=== PATIENT | male | born 1975 | race African-American/Black ===

== ENCOUNTER 2018-12-22 23:08 | Inpatient (IN) | payer OTHER ==
[~2018-12-22] VITALS: Ht 190.5 cm; Wt 93.0 kg
[~2018-12-22 23:08] MED LIST: ASPIR 8181 MG PO; AUGMENTIN 875875 MG PO; FISH OIL 1,0001 EAC5 PO; FLAGYL500 MG PO; GLUCOPHAGE500 MG PO; HUMALOG100 UNIT/1 SUBQ; HUMALOG100 UNIT/2 SQ; HYDROCODON-ACE1 EAC7 PO; KEFLEX500 MG PO; LANTUS SUBQ; LANTUSSOLASTAR SUBQ; METFORMIN HCL500 MG PO; METFORMIN PO; NORCO 5-325 TA1 EACH PO; NORCO 7.5-3251 EACH PO; PERCOCET 5-3251 EACH PO; VITAMIN B-12500 MCG PO
[2018-12-22 23:14] VITALS: BP 129/75
[2018-12-22] MEDS ORDERED: NEURONTIN 300300 M1 PO (23:19)
[2018-12-23 01:27] LABS: ABSOLUTE NEUTROPHILS 3.2 thou/uL (1.4-8.2); BASOPHILS 0.7 % (0.0-2.0); EOSINOPHILS 3.6 % (0.0-3.0); HEMATOCRIT 36.4 % (42.0-52.0); HEMOGLOBIN 12.5 gm/dL (14.0-18.0); LYMPHOCYTES 21.9 % (24.0-44.0); MCH 27.6 pg (26.0-34.0); MCHC 34.4 g/dL (28.0-37.0); MCV 80.1 fL (80.0-100.0); MONOCYTES 6.8 % (1.0-8.0); PLATELET COUNT 246 thou/uL (150-400); RBC 4.55 mil/uL (4.50-6.00); RDW 12.9 % (10.5-14.5); WBC 4.7 thou/uL (4.0-11.0)
[2018-12-23 01:28] LABS: URINE BILIRUBIN NEGATIVE (Negative); URINE BLOOD TRACE (Negative); URINE CLARITY CLEAR; URINE COLOR YELLOW; URINE GLUCOSE-RANDOM* 3+ (Negative); URINE KETONES NEGATIVE (Negative); URINE LEUKOCYTES-REFLEX NEGATIVE (Negative); URINE NITRITE-REFLEX NEGATIVE (Negative); URINE PROTEIN (DIPSTICK) NEGATIVE (Negative); URINE SPECIFIC GRAVITY <= 1.005 (1.005-1.035); URINE UROBILINOGEN 0.2 E.U./dl (0.2-1.0)
[2018-12-23 01:41] LABS: ALBUMIN 3.5 g/dL (3.4-5.0); ANION GAP 6 mmol/L (7-16); BUN 25 mg/dL (7-18); CALCIUM 9.3 mg/dL (8.5-10.1); CHLORIDE 91 mmol/L (98-107); CO2 30 mmol/L (21-32); DIRECT BILIRUBIN 0.1 mg/dL (<0.1-0.3); LIPASE 182 U/L (73-393); SGOT 17 U/L (15-37); SGPT 29 U/L (30-65); SODIUM 127 mmol/L (136-145); TOTAL BILIRUBIN 0.4 mg/dL (<0.1-1.0); TOTAL PROTEIN 7.4 g/dL (6.4-8.2); TROPONIN-I <0.06 ng/mL (<0.06)
[2018-12-23 01:48] LABS: GLUCOSE 753 mg/dL (74-106)
[2018-12-23 02:43] VITALS: BP 154/83
[2018-12-23] MEDS ORDERED: LISINOPRIL10 MG PO (03:14)
[2018-12-23] MEDS ORDERED: LIPITOR 20 MG T20 M1 PO (03:15)
[2018-12-23 03:39] VITALS: BP 134/71
[2018-12-23 04:11] VITALS: BP 143/81
--- NOTE | 2018-12-23 05:16 | NUR ---
PT ARRIVED UNIT FROM ER AT ABOUT 0400. PT A/OX4, VITAL SIGNS STABLE, ASSESSMENT CHARTED. BS WAS 479 UPON ARRIVAL. INSULIN REGULAR DRIP STARTED PER PROTOCOL. PAIN MANAGED WITH PAIN MEDICATION. CONSENTS SIGNED, ADMISSION COMPLETED. PT RESTING IN COMFORTABLE IN BED. WILL CONTINUE TO MONITOR. DROPTLET PRECAUTIONS MAINTAINED.
[2018-12-23 05:55] LABS: CALCIUM 9.5 mg/dL (8.5-10.1); CREATININE 0.9 mg/dL (0.7-1.3); POTASSIUM 4.3 mmol/L (3.5-5.1)
[2018-12-23 06:00] LABS: CHOLESTEROL 156 mg/dL (<200); HDL CHOLESTEROL 75 mg/dL (>40); LDL CHOLESTEROL 72 mg/dL (<100); TC:HDL 2.1 Ratio (Not establshd); TRIGLYCERIDE 48 mg/dL (<150); VLDL 10 mg/dL (<40)
[2018-12-23 06:01] LABS: SERUM ASSESSMENT Clear
[2018-12-23 07:38] VITALS: BP 113/71
--- NOTE | 2018-12-23 08:21 | EKG ---
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 : 1975 Requested By: Denisa Brumfield Order Number: [id number] MD: Hong Anne Measurements Intervals [place] Rate: 96 P: 57 MN: 159 QRS: 67 QRSD: 82 T: 52 QT: 347 QTc: 439 Interpretive Statements Sinus rhythm Compared to ECG 09/04/2015 11:06:04 Electronically Signed On 12-23-2018 8:21:27 CDT by Hong Anne [email or web address] ��������������������������������������������� <ELECTRONICALLY SIGNED> ���������������������������������������� By: Hong Anne MD ��������������������������������������������� 12/23/18 0821 [id number] 33 Hong Anne MD /YEFRI
--- NOTE | 2018-12-23 17:08 | NUR ---
ASSUMED CARE OF PT AT SHIFT CHANGE. ASSESSMENTS CHARTED. MEDS GIVEN PER OCT. PT ALERT AND ORIENTED, VSS, C/O PAIN, MANAGED WITH PO PAIN MEDS AND TOPICAL MED. PT UP SBA, URINE OUTPUT ADEQUATE. INSULIN GTT DC'D PER PROVIDER ORDERS. ORDERS RECEIVED FOR SQ INSULIN. BLOOD SUGAR AT 446 AROUND 1700. PROVIDER NOTIFIED, ORDERS RECEIVED TO CONTINUE CURRENT INSULIN ORDERS, AND CHECK BLOOD SUGAR IN 1-2 HOURS. APPETITE GOOD, PT IS CURRENTLY RESTING IN BED WITH FAMILY AT BEDSIDE. CALLS APPROPRIATELY. DENIES CONCERNS. CONTINUING TO MONITOR.
[2018-12-23 20:15] VITALS: BP 110/71
[2018-12-23 22:11] LABS: GLYCOHEMOGLOBIN (HGB A1C) 15.1 % (4.8-5.6)
[2018-12-24 04:00] VITALS: BP 119/73
--- NOTE | 2018-12-24 05:00 | NUR ---
ASSESSMENT DOCUMENTED.PT RESTING IN NO ACUTE DISTRESS.A/OX4.LEGALLY BLIND.DENIES PAIN OR LUBNA DISTRESS.ASSISTED WITH SHOWER WITH SET UP.INSULIN AND ACCU CHECKS PER DR'S ORDERS.UP WITH SBA TO BR.NO CONCERNS VOICED AT THIS TIME.WILL CONT TO MONITOR PER POC.
[2018-12-24 08:10] VITALS: BP 127/80
[2018-12-24 16:06] VITALS: BP 138/82
--- NOTE | 2018-12-24 17:23 | NUR ---
PT STRUGGLED TO REMAIN COMPLIANT TO DIABETIC DIET ALTHOUGH AWARE BLOOD SUGARS RUNNING VERY HIGH - LETHARGIC UP UNTIL ABOUT 1600 - 1700 BLOOD SUGAR 76 AND PT SITTING UP AND MOR ALERT AND COOPERATIVE
[2018-12-24 20:37] VITALS: BP 117/74
[2018-12-25 04:09] VITALS: BP 146/84
--- NOTE | 2018-12-25 05:17 | NUR ---
ASSUMED CARE AT 1900. PT AO X4. REPORTS BACK PAIN. REFUSES DICLOFENAC AND TYLENOL BUT WANTED NORCO. PT BG 264. 35 UNITS OF LANTUS AND 4 UNITS HUMALOG. PT REQUESTED FOOD BECAUSE HE HAD NOT EATEN DINNER. RECHECKED BG AT 0400 WAS 362. DIRECTOR OF PLANT OPERATIONS NOTIFIED. ONE TIME ORDER FOR HUMALOG 10 UNITS ORDERED. C/O NAUSEA, AND COUGH. COUGH SYRUP AND ZOFRAN PRN GIVEN. NO FURTHER C/O REPORTED. WILL CONTINUE TO FOLLOW PLAN OF CARE.
[2018-12-25 09:00] VITALS: BP 92/70
[2018-12-25 17:24] VITALS: BP 106/68
--- NOTE | 2018-12-25 17:57 | NUR ---
ASSUMED CARE AT SHIFT CHANGE, ALERT AND ORIENTED X4. BLD GLUCOSE MAITAINED PER ORDERS. VSS AND AFEBRILE. C/O BACK PAIN AND MEDICATED SCHEDULED. ASKING FOR MORE FOOD AND CALLED FOOD SERVICES AND PATIENT WAS EDUCATED AND ADVICED TO ADHERE TO THE DIET. AND WILL CONTINUE WITH POC.
[2018-12-25 19:49] VITALS: BP 96/61
--- NOTE | 2018-12-26 03:21 | NUR ---
ASSUMED PT CARE AT 1900. PT A/OX4, VITAL SIGNS STABLE, ASSESSMENT CHARTED. NO COMPLAINTS OF PAIN/CHEST PAIN. BLOOD SUGAR WAS 221, PT EDUCATED ON KEEPING BLOOD SUGAR WITHIN NORMAL LIMITS PT KEPT REQUESTING FOR SOMETHING TO EAT. OTHERWISE PT RESTED WELL THROUGH THE NIGHT. PROGRESSING TOWARD PLAN OF CARE. WILL CONTINUE TO MONITOR.
[2018-12-26 04:17] VITALS: BP 611/77
[2018-12-26 07:55] VITALS: BP 113/63
[2018-12-26] MEDS ORDERED: CELEBREX 200 M200 M1 PO (10:20)
[2018-12-26] MEDS ORDERED: OSELB75 PO (10:20)
[2018-12-26 10:43] VITALS: BP 113/63
--- NOTE | 2018-12-26 11:39 | NUR ---
DISCHARGE ASSUMED CARE AT SHIFT CHANGE ALERT AND ORIENTED X4. DENEIS ANY DISCOMFORT. BG LEVEL GETTING BETTER. VSS AMD S/B DR VINCENT AND STEVEN INSTRUCTION AND MEDICATION INFORMATION GIVEN TO PATIENT. PATIENT VERBALIZED UNDERSTANDING INSTRUCTION AND WAITING FOR A FRIEND TO PICK HIM UP.
== END 2018-12-26 13:16 | disposition home or self-care (01) | DRG 153 ==
LOC: ER 23:08 → EROBS 12-23 02:45 → 2N 12-23 03:39 → ENTRNSPT 12-26 12:58 → EDTRNSPTSTS 12-26 13:11 → 2N 12-26 13:16
PROVIDERS: Emergency Medicine; Nurse Practitioner Family; ADMIT Hospitalist
DX: J11.1 Influenza due to unidentified influenza virus with other respiratory manifestations (principal); E11.65 Type 2 diabetes mellitus with hyperglycemia; H54.8 Legal blindness, as defined in USA; I10 Essential (primary) hypertension; E78.5 Hyperlipidemia, unspecified; Z90.49 Acquired absence of other specified parts of digestive tract; Z79.84 Long term (current) use of oral hypoglycemic drugs; Z79.82 Long term (current) use of aspirin; Z91.14 Patient's other noncompliance with medication regimen
CPT/HCPCS: 10194

== ENCOUNTER → 2019-05-09 | Emergency (ER) | payer OTHER ==
[~2019-05-09] VITALS: Ht 190.5 cm; Wt 102.5 kg
[~2019-05-09] MED LIST changes: +CELEBREX 200 M200 M1 PO; +LIPITOR 20 MG T20 M1 PO; +LISINOPRIL10 MG PO; +NEURONTIN 300300 M1 PO; +OSELB75 PO
[2019-05-09 19:16] VITALS: BP 150/82
== END ==
LOC: ER 18:40
DX: M79.604 Pain in right leg (principal); M79.89 Other specified soft tissue disorders; E11.9 Type 2 diabetes mellitus without complications; I10 Essential (primary) hypertension; E78.5 Hyperlipidemia, unspecified; Z90.49 Acquired absence of other specified parts of digestive tract

== ENCOUNTER 2019-09-04 13:13 | Inpatient (IN) | payer OTHER ==
[~2019-09-04] VITALS: Ht 188 cm; Wt 99.8 kg
[2019-09-04 14:13] LABS: ABSOLUTE NEUTROPHILS 2.6 thou/uL (1.4-8.2); BASOPHILS 0.4 % (0.0-2.0); EOSINOPHILS 1.9 % (0.0-3.0); HEMATOCRIT 29.8 % (42.0-52.0); HEMOGLOBIN 10.2 gm/dL (14.0-18.0); LYMPHOCYTES 19.1 % (24.0-44.0); MCH 26.9 pg (26.0-34.0); MCHC 34.2 g/dL (28.0-37.0); MCV 78.7 fL (80.0-100.0); MONOCYTES 8.3 % (1.0-8.0); PLATELET COUNT 191 thou/uL (150-400); POLYS 70.3 % (36.0-66.0); RBC 3.79 mil/uL (4.50-6.00); RDW 13.8 % (10.5-14.5); WBC 3.8 thou/uL (4.0-11.0)
[2019-09-04 14:16] LABS: CALCIUM 8.8 mg/dL (8.5-10.1); CREATININE 1.2 mg/dL (0.7-1.3); POTASSIUM 3.6 mmol/L (3.5-5.1)
[2019-09-04 14:25] LABS: ALBUMIN 2.6 g/dL (3.4-5.0); TOTAL BILIRUBIN 0.5 mg/dL (<0.1-1.0); TOTAL PROTEIN 6.9 g/dL (6.4-8.2); TROPONIN-I 0.06 ng/mL (<0.06)
--- NOTE | 2019-09-04 15:07 | EKG ---
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 RAMON : 1975 Requested By: Julien Velez Order Number: [id number] MD: Hong Anne Measurements Intervals [place] Rate: 101 P: 44 TN: 154 QRS: 45 QRSD: 82 T: 68 QT: 353 QTc: 458 Interpretive Statements Sinus tachycardia Baseline wander in lead(s) I,II,III,aVR,aVF,V2,V3,V5,V6 Compared to ECG 12/22/2018 23:34:46 Sinus rhythm no longer present Electronically Signed On 09-04-2019 15:07:10 REFINERY 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
[2019-09-04 16:46] VITALS: BP 151/78
[2019-09-04 20:00] VITALS: BP 133/73
[2019-09-05 04:52] VITALS: BP 148/80
--- NOTE | 2019-09-05 05:08 | NUR ---
PT WAS AN ER ADMIT. PT IS ADMITTED WITH CHF AND CHEST PAIN. NO SIGN OF DISTRESS NOTED. UPON ARRIVAL TO THE FLOOR, NO SIGN OF DISTRESS NOTED IN PT. FALL PRECAUTION IN PLACE, CALL LIGHT WITHIN REACH. ADMISSION ASSESSMENT AND EDUCATION COMPLETED. VITAL SIGNS STABLE. SCHEDULED MEDS ADMINISTERED TO PT. PT VERBALIZES CHEST PAIN, PAIN MED ADMINISTERED TO PT. CONTINUE TO MONITOR PATIENT, DENIES ANY FURTHER NEEDS AT THIS TIME.
[2019-09-05 05:18] LABS: CALCIUM 8.5 mg/dL (8.5-10.1); CREATININE 1.5 mg/dL (0.7-1.3); POTASSIUM 3.7 mmol/L (3.5-5.1)
[2019-09-05 05:27] LABS: HEMATOCRIT 25.9 % (42.0-52.0); HEMOGLOBIN 8.8 gm/dL (14.0-18.0); MCHC 33.9 g/dL (28.0-37.0); MCV 79.7 fL (80.0-100.0); RBC 3.25 mil/uL (4.50-6.00); RDW 13.5 % (10.5-14.5); WBC 3.5 thou/uL (4.0-11.0)
[2019-09-05 07:42] VITALS: BP 155/86
--- NOTE | 2019-09-05 09:46 | 2DMMODE ---
[facility] [place] [address] 2 D/M-MODE ECHOCARDIOGRAM Name: CHAPIN ECHOLS Room #: 203-P [facility] IN .R.#: [id number] Admission: 09/04/19 Attend Phys: Ignacio Bustos MD Discharge: Date of : 73 Report #: [id number] THIS REPORT FOR: //name// APPROVED REPORT Study performed: 09/05/2019 08:46:56 EXAM: Comprehensive 2D, Doppler, and color-flow Echocardiogram Patient Location: Bedside Room #: 203 Status: routine BSA: 2.26 HR: 90 bpm BP: 155/86 mmHg Other Information Study Quality: Adequate Indications Congestive Heart Failure Diabetes Dyspnea Hypertension/HDD 2D Dimensions RVDd: 32.87 mm IVSd: 14.89 (7-11mm) LVOT Diam: 24.95 (18-24mm) LVDd: 45.96 mm PWd: 17.05 (7-11mm) Ascending Ao: 37.21 (22-36mm) LVDs: 35.77 (25-40mm) Aortic Root: 38.33 mm IVC: 19.00 mm Volumes Left Atrial Volume (Systole) Single Plane 4CH: 82.71 mL Single Plane 2CH: 63.96 mL LA ESV Index: 35.00 mL/m2 Aortic Valve AoV Peak Ruy.: 1.08 m/s AO Peak Gr.: 4.65 mmHg LVOT Max P.84 mmHg LVOT Max V: 0.84 m/s VICKI Vmax: 3.82 cm2 Pulmonary Valve PV Peak Ruy.: 0.88 m/s PV Peak Gr.: 3.07 mmHg [facility] [address] [place] [address] 2 D/M-MODE ECHOCARDIOGRAM Name: CHAPIN ECHOLS Room #: 203-[facility].#: [id number] Admission: 09/04/19 Attend Phys: Ignacio Bustos MD Discharge: Date of : 73 Report #: [id number] Tricuspid Valve TR Peak Ruy.: 2.01 m/s TR Peak Gr.: 16.15 mmHg PA Pressure: 21.00 mmHg Left Ventricle The left ventricle is normal size. There is normal LV segmental wall motion. Moderate concentric left ventricular hypertrophy. Left ventricular systolic function is at the lower limits of normal LVEF 50%. Mild diastolic dysfunction is present (impaired relaxation pattern). Right Ventricle The right ventricle is normal size. The right ventricular systolic function is normal. Atria Left atrium is dilated. The right atrium size is normal. Aortic Valve The aortic valve is normal in structure. No aortic regurgitation is present. There is no aortic valvular stenosis. Mitral Valve The mitral valve is normal in structure. Trace mitral regurgitation. No evidence of mitral valve stenosis. Tricuspid Valve The tricuspid valve is normal in structure. There is trace tricuspid regurgitation. Estimated PAP 21 mmHg. There is no pulmonary hypertension. Pulmonic Valve The pulmonary valve is normal in structure. Trace pulmonic regurgitation. Great Vessels The aortic root is normal in size. IVC is normal in size and collapses >50% with inspiration. Pericardium Small pericardial effusion. <Conclusion> Left ventricular systolic function is at the lower limits of [facility] [address] [place] [address] 2 D/M-MODE ECHOCARDIOGRAM Name: CHAPIN ECHOLS IYER Room #: 203-P [facility] IN M.R.#: [id number] Admission: 09/04/19 Attend Phys: Ignacio Bustos MD Discharge: Date of : 73 Report #: [id number] normal There is normal LV segmental wall motion. LVEF 50%. Moderate LVH Mild diastolic dysfunction The aortic valve is normal in structure. No aortic regurgitation or stenosis. The mitral valve is normal in structure. Trace mitral regurgitation. There is trace tricuspid regurgitation. Estimated pulmonary artey pressure of 21 mmHg. Small pericardial effusion. <ELECTRONICALLY SIGNED> By: Daniel Hall MD, [facility] 09/05/1946 Daniel Hall MD, FACC /INF
[2019-09-05 11:11] VITALS: BP 150/78
--- NOTE | 2019-09-05 11:46 | NUR ---
Nutrition screening risk was identified at admit with 2 point risk poor appetite and unintentional wt loss. Chart reviewed, pt has had about 10-15 lb gain, admitted with CHF. Appetite is good. Reviewed and answered questions pt had regarding limiting Na. Pt legally blind, family member assists with meals. Pt has been trying to reduce sodium intake but still unaware of some hidden sources of sodium, example eating south korean food frequently. Also hx of diabetes. Admit in November, A1C was 15. States he can draw up on insulin based on "clicks" but does not monitor his BG levels at home. Hospital BG in good control at this time. Added carb controll diet to diet order. Low nutrition risk
[2019-09-05] MEDS ORDERED: FUROSEMIDE 20 M20 MG PO (12:04)
[2019-09-05 14:31] VITALS: BP 150/78
--- NOTE | 2019-09-05 17:52 | NUR ---
ASSUMED CARE OF PT AT SHIFT CHANGE. ASSESSMENTS CHARTED. MEDS GIVEN PER MAR. VSS. NO C/O PAIN. PT AOX4. DISCHARGE ORDERS AND INSTRUCTIONS COMLETE. TELE AND IV DC'D. PT WAITING FOR GIRLFRIEND TO TAKE HIM HOME. WILL CONTINUE TO MONITOR UNTIL PT IS OFF UNIT.
== END 2019-09-05 18:53 | disposition home or self-care (01) | DRG 293 ==
LOC: ER 13:13 → EROBS 16:54 → 2N 20:15
PROVIDERS: Physician Assistant; ADMIT Hospitalist
DX: I11.0 Hypertensive heart disease with heart failure (principal); E11.9 Type 2 diabetes mellitus without complications; H54.8 Legal blindness, as defined in USA; I50.30 Unspecified diastolic (congestive) heart failure; E78.5 Hyperlipidemia, unspecified; Z90.49 Acquired absence of other specified parts of digestive tract; Z79.899 Other long term (current) drug therapy; Z79.4 Long term (current) use of insulin; Z79.82 Long term (current) use of aspirin; Z79.84 Long term (current) use of oral hypoglycemic drugs
CPT/HCPCS: 10081

== ENCOUNTER 2019-10-03 16:42 | Emergency (ER) | payer OTHER ==
[~2019-10-03] VITALS: Ht 190.5 cm; Wt 98.9 kg
[2019-10-03 16:42] VITALS: BP 146/90
[~2019-10-03 16:42] MED LIST changes: +FUROSEMIDE 20 M20 MG PO
== END 2019-10-03 17:43 | disposition home or self-care (01) ==
LOC: ER 16:42
DX: J06.9 Acute upper respiratory infection, unspecified (principal); E11.9 Type 2 diabetes mellitus without complications; I10 Essential (primary) hypertension; E78.5 Hyperlipidemia, unspecified; Z90.49 Acquired absence of other specified parts of digestive tract

== ENCOUNTER 2020-01-22 21:33 | Emergency (ER) | payer OTHER ==
[~2020-01-22] VITALS: Ht 190.5 cm; Wt 99.3 kg
[2020-01-23 00:01] LABS: ABSOLUTE NEUTROPHILS 3.8 thou/uL (1.4-8.2); BASOPHILS 1.1 % (0.0-2.0); EOSINOPHILS 5.6 % (0.0-3.0); HEMATOCRIT 27.4 % (42.0-52.0); HEMOGLOBIN 9.5 gm/dL (14.0-18.0); LYMPHOCYTES 19.4 % (24.0-44.0); MCHC 34.6 g/dL (28.0-37.0); MCV 80.9 fL (80.0-100.0); MONOCYTES 7.7 % (1.0-8.0); PLATELET COUNT 235 thou/uL (150-400); POLYS 66.2 % (36.0-66.0); RBC 3.39 mil/uL (4.50-6.00); RDW 14.5 % (10.5-14.5); WBC 5.7 thou/uL (4.0-11.0)
[2020-01-23 00:02] LABS: CALCIUM 8.2 mg/dL (8.5-10.1); CREATININE 1.2 mg/dL (0.7-1.3)
[2020-01-23 02:31] VITALS: BP 151/76
== END 2020-01-23 02:56 | disposition home or self-care (01) ==
LOC: ER 21:33
PROVIDERS: Emergency Medicine
DX: T25.231A Burn of second degree of right toe(s) (nail), initial encounter (principal); T25.232A Burn of second degree of left toe(s) (nail), initial encounter; T25.221A Burn of second degree of right foot, initial encounter; T25.222A Burn of second degree of left foot, initial encounter; T31.0 Burns involving less than 10% of body surface; E11.40 Type 2 diabetes mellitus with diabetic neuropathy, unspecified; I10 Essential (primary) hypertension; E78.5 Hyperlipidemia, unspecified; Z90.49 Acquired absence of other specified parts of digestive tract; Z79.899 Other long term (current) drug therapy; Z79.82 Long term (current) use of aspirin; Z79.4 Long term (current) use of insulin; X12.XXXA Contact with other hot fluids, initial encounter; Y93.89 Activity, other specified; Y92.89 Other specified places as the place of occurrence of the external cause; Y99.8 Other external cause status

== ENCOUNTER → 2020-09-04 | Outpatient (CLI) | payer OTHER | LOC: SJCVCIMAG 15:16 | PROVIDERS: ATTEND Internal Medicine | DX: I10 Essential (primary) hypertension (principal); Z13.220 Encounter for screening for lipoid disorders; R60.0 Localized edema; M79.604 Pain in right leg; M79.605 Pain in left leg; M79.89 Other specified soft tissue disorders; E66.9 Obesity, unspecified; E10.40 Type 1 diabetes mellitus with diabetic neuropathy, unspecified; Z79.899 Other long term (current) drug therapy; Z87.891 Personal history of nicotine dependence ==

== ENCOUNTER 2020-10-22 14:16 | Inpatient (IN) | payer OTHER ==
[~2020-10-22] VITALS: Ht 190.5 cm; Wt 147.9 kg
[2020-10-22] VITALS (7 sets, daily range): BP systolic 147–210; BP diastolic 83–112
[2020-10-22] MEDS ORDERED: TOPROL XL50 MG PO (15:10)
[2020-10-22] MEDS ORDERED: LASIX 40 MG TAB40 MG PO (15:10)
[2020-10-22 15:45] LABS: ABSOLUTE NEUTROPHILS 3.8 thou/uL (1.4-8.2); BASOPHILS 1.1 % (0.0-2.0); EOSINOPHILS 8.9 % (0.0-3.0); HEMATOCRIT 22.9 % (42.0-52.0); HEMOGLOBIN 7.3 gm/dL (14.0-18.0); LYMPHOCYTES 14.7 % (24.0-44.0); MCH 23.6 pg (26.0-34.0); MCHC 31.7 g/dL (28.0-37.0); MCV 74.7 fL (80.0-100.0); MONOCYTES 8.1 % (1.0-8.0); PLATELET COUNT 272 thou/uL (150-400); POLYS 67.2 % (36.0-66.0); RBC 3.07 mil/uL (4.50-6.00); RDW 16.3 % (10.5-14.5); WBC 5.7 thou/uL (4.0-11.0)
[2020-10-22 16:01] LABS: APTT 24.4 Seconds (24.5-32.8); PROTIME 11.3 Seconds (9.3-11.4)
[2020-10-22 16:38] LABS: ANION GAP 8 mmol/L (7-16); BUN 30 mg/dL (7-18); CALCIUM 8.3 mg/dL (8.5-10.1); CHLORIDE 107 mmol/L (98-107); CO2 26 mmol/L (21-32); GLUCOSE 118 mg/dL (74-106); POTASSIUM 4.4 mmol/L (3.5-5.1); SODIUM 141 mmol/L (136-145)
[2020-10-22 16:47] LABS: ALBUMIN 2.6 g/dL (3.4-5.0); SGOT 50 U/L (15-37); SGPT 37 U/L (30-65); TOTAL BILIRUBIN 0.4 mg/dL (0.2-1.0); TROPONIN-I <0.06 ng/mL (<0.06)
[2020-10-22 18:27] LABS: FOLIC ACID 10.5 ng/mL (8.6-58.9)
--- NOTE | 2020-10-22 19:23 | NUR ---
patient arrives to ccu at 1825.
[2020-10-22 19:42] LABS: % SATURATION 14 % (20-39); IRON 42 ug/dL (65-175); TIBC 292 ug/dL (250-450)
[2020-10-22] MEDS ORDERED: MELATONIN3 M1 PO (21:51)
[2020-10-23 03:43] VITALS: BP 147/94
--- NOTE | 2020-10-23 05:02 | NUR ---
ARRIVED TO FLOOR AROUND CHANGE OF SHIFT/RECEIVED REPORT FROM DAY RN; PATIENT ALERT & ORIENTED/VISUALLY IMPAIRED; ORIENTED TO ROOM; PT ABLE TO TRANSFER TO BED WITHOUT INCIDENT; VSS; WILL CONTINUE TO ASSESS AND MONITOR ACCORDING TO POC.
[2020-10-23 05:50] LABS: EOSINOPHILS 8.6 % (0.0-3.0); HEMOGLOBIN 6.9 gm/dL (14.0-18.0); WBC 5.3 thou/uL (4.0-11.0)
[2020-10-23 05:55] LABS: ABSOLUTE NEUTROPHILS 3.8 thou/uL (1.4-8.2); HEMATOCRIT 21.2 % (42.0-52.0); LYMPHOCYTES 11.5 % (24.0-44.0); MCH 24.3 pg (26.0-34.0); MCHC 32.6 g/dL (28.0-37.0); MCV 74.4 fL (80.0-100.0); MONOCYTES 7.7 % (1.0-8.0); PLATELET COUNT 241 thou/uL (150-400); POLYS 71.2 % (36.0-66.0); RBC 2.85 mil/uL (4.50-6.00); RDW 16.2 % (10.5-14.5)
[2020-10-23 06:26] LABS: CALCIUM 8.1 mg/dL (8.5-10.1); CREATININE 2.1 mg/dL (0.7-1.3); MAGNESIUM 1.8 mg/dL (1.8-2.4); POTASSIUM 3.5 mmol/L (3.5-5.1)
--- NOTE | 2020-10-23 07:00 | EKG ---
[address] [place] [address] ELECTROCARDIOGRAM REPORT Name: CHAPIN ECHOLS Room #: 210- ADM IN M.R.#: [id number] Admission: 10/22/20 Attend Phys: Ignacio Bustos MD Discharge: Date of : 73 Report #: [id number] [facility] ED Test Date: 2020-10-22 Test Time: 14:54:39 Pat Name: CHAPIN ECHOLS Department: Room: 210 Gender: M Chief Of Vital Statistics: YUMIKO : 1975 Requested By: Pawel Evans Order Number: [id number] : Desmond Liu Measurements Intervals [place] Rate: 95 P: 46 FL: 182 QRS: 25 QRSD: 88 T: 59 QT: 358 QTc: 450 Interpretive Statements Sinus rhythm Compared to ECG 09/04/2019 13:24:33 Sinus tachycardia no longer present Electronically Signed On 10-23-2020 7:00:36 MOLASSES PREPARER by Desmond Liu [email or web address] <ELECTRONICALLY SIGNED> By: Desmond Liu MD, [facility] 10/23/20 0700 1454 1454 Desmond Liu MD, FACC /EPI
[2020-10-23 07:24] VITALS: BP 182/104
[2020-10-23 08:41] LABS: CHOLESTEROL 140 mg/dL (<200); HDL CHOLESTEROL 66 mg/dL (>40); LDL CHOLESTEROL 60 mg/dL (<100); TC:HDL 2.1 Ratio (Not establshd); TRIGLYCERIDE 71 mg/dL (<150); VLDL 14 mg/dL (<40)
--- NOTE | 2020-10-23 09:30 | 2DMMODE ---
[facility] [place] [address] 2 D/M-MODE ECHOCARDIOGRAM Name: CHAPIN ECHOLS Room #: 210-P ADM IN ..#: [id number] Admission: 10/22/20 Attend Phys: Ignacio Bustos MD Discharge: Date of : 73 Report #: [id number] THIS REPORT FOR: cc: TOBI Suarez family physician/PCP TOBI - Daniela family physician/PCP Desmond Liu MD [facility] ~ APPROVED REPORT Study performed: 10/23/2020 07:52:58 EXAM: Comprehensive 2D, Doppler, and color-flow Echocardiogram Patient Location: In-Patient Room #: 210 Status: routine BSA: 2.69 HR: 88 bpm BP: 182/104 mmHg Rhythm: NSR Other Information Study Quality: Adequate Risk Factors: Cardiac Risk Factors: HTN Indications Congestive Heart Failure Hypertension/HDD 2D Dimensions RVDd: 48.84 mm IVSd: 12.49 (7-11mm) LVOT Diam: 26.73 (18-24mm) LVDd: 50.89 mm PWd: 17.37 (7-11mm) Ascending Ao: 33.89 (22-36mm) LVDs: 39.53 (25-40mm) Left Atrium: 35.75 (27-40mm) Aortic Root: 31.64 mm IVC: 23.00 mm Volumes Left Atrial Volume (Systole) Single Plane 4CH: 45.57 mL Single Plane 2CH: 99.77 mL Aortic Valve AoV Peak Ruy.: 1.26 m/s [facility] [address] [address] 2 D/M-MODE ECHOCARDIOGRAM Name: CHAPIN ECHOLS Room #: 210-[facility] IN ..#: [id number] Admission: 10/22/20 Attend Phys: Ignacio Bustos MD Discharge: Date of : 73 Report #: [id number] AO Peak Gr.: 6.32 mmHg LVOT Max P.87 mmHg LVOT Max V: 0.85 m/s VICKI Vmax: 3.78 cm2 Mitral Valve MV Peak Gr.: 7.74 mmHg MV Mean Gr.: 2.84 mmHg MV Max Ruy.: 1.39 m/s MV Mean Ruy.: 0.72 m/s MV VTI: 346.23 mm IVRT: 59.98 ms Pulmonary Valve PV Peak Ruy.: 0.94 m/s PV Peak Gr.: 3.53 mmHg LA End Vmax: 1.26 m/s Pulmonary Vein P Vein S: 0.57 m/s P Vein A: 0.37 m/s P Vein D: 0.39 m/s P Vein A Dur.: 110.7 msec P Vein S/D Ratio: 1.46 Tricuspid Valve TR Peak Ruy.: 2.97 m/s RAP Estimate: 7.00 mmHg TR Peak Gr.: 35.39 mmHg PA Pressure: 42.00 mmHg Left Ventricle The left ventricle is normal size. There is normal LV segmental wall motion. Moderate concentric left ventricular hypertrophy. Left ventricular systolic function is mildly decreased. LVEF is 40-45%. Transmitral Doppler flow pattern suggests impaired LV relaxation. Right Ventricle Right ventricle is dilated. The right ventricular systolic function is normal. Atria The left atrium size is normal. Right atrium is at the upper limits of normal. Aortic Valve The aortic valve is normal in structure. No aortic regurgitation is present. There is no aortic valvular stenosis. Mitral Valve [facility] [address] [place] [address] 2 D/M-MODE ECHOCARDIOGRAM Name: CHAPIN ECHOLS Room #: 210-P [facility] IN .R.#: [id number] Admission: 10/22/20 Attend Phys: Ignacio Bustos MD Discharge: Date of : 73 Report #: [id number] The mitral valve is normal in structure. Trace mitral regurgitation. No evidence of mitral valve stenosis. Tricuspid Valve The tricuspid valve is normal in structure. Trace to mild tricuspid regurgitation. The RVSP is 40-45 mmHg. Pulmonic Valve The pulmonary valve is normal in structure. There is no pulmonic valvular regurgitation. Great Vessels The aortic root is normal in size. IVC is dilated and collapses >50% with inspiration. Pericardium Mild circumferential pericardial effusion. No pleural effusion. <Conclusion> Normal left ventricular size with moderate concentric hypertrophy Mild global hypokinesis ejection fraction 45% Mildly dilated RV/normal systolic function Normal atrial size Color-flow Doppler study was performed of the aortic/mitral/tricuspid/pulmonary valve Normal aortic valve structure and function Trace mitral valve insufficiency Mild tricuspid valve insufficiency Pulmonary artery systolic pressure estimated 45 mmHg Mild pericardial effusion, no tamponade physiology Normal IVC size and response to respiration <ELECTRONICALLY SIGNED> By: Desmond Liu MD, FACC 10/23/20928 8 8 Desmond Liu MD, FACC /INF
--- NOTE | 2020-10-23 10:01 | NUR ---
PT. TO RECIEVE 2 UNITS/TRANSFUSION TODAY WAITING ON BLOOD BANK TO CALL ME BACK WITH UNITS AVAILABLE. PT. DID NOT EAT ANY BRAKFAST, "NOT INTERESTED". HIS BP WAS 182/104 THIS AM SO WE GAVE PAIN MEDICINE FOR HIS BACK/SHOULDER DISCOMFORT WELL BLOOD PRESSURE MDICATIONS AND NOW HE IS 120'S -MUCH IMPROVEMENT.
[2020-10-23 11:39] LABS: URINE BILIRUBIN NEGATIVE (Negative); URINE BLOOD 2+ (Negative); URINE CLARITY CLEAR; URINE COLOR YELLOW; URINE GLUCOSE-RANDOM* NEGATIVE (Negative); URINE KETONES NEGATIVE (Negative); URINE LEUKOCYTES-REFLEX NEGATIVE (Negative); URINE NITRITE-REFLEX NEGATIVE (Negative); URINE PROTEIN (DIPSTICK) 2+ (Negative); URINE SPECIFIC GRAVITY 1.015 (1.005-1.035); URINE UROBILINOGEN 0.2 E.U./dl (0.2-1.0)
[2020-10-23 11:54] LABS: CASTS None Seen /LPF (None Seen); SQUAMOUS 0-3 Few /LPF (0-3)
[2020-10-23 11:55] LABS: BACTERIA-REFLEX None Seen /HPF (None Seen); CRYSTALS None Seen /LPF (None Seen); URINE RBC 0-2 Rare /HPF (0-2); URINE WBC-REFLEX 0-5 Rare /HPF (0-5)
[2020-10-23 12:07] VITALS: BP 186/101
--- NOTE | 2020-10-23 12:38 | NUR ---
BLOOD IS TRANSFUSING WITH NO ISSUES OR TROUBLE BREATHING, BLOOD PRESSURE SLIGHTLY ELEVATED SINCE STARTED BUT STILL NOT HIGH THIS AM ON ASSESSMENT. PUT HIM BACK IN BED WITH HIS FEET ELEVATED ABOVE HIS HENAO HIS LEGS ARE VERY EDEMATOUS-3+ LOTION APPLIED TO THEM WELL HIS SKIN IS SUPER TIGHT AND DRY. PAIN IMPROVED WITH HIS PAINMEDICATION EARLYT HIS AM AND HE APPEARS MUCH MORE COMFORTABLE OVERALL.
--- NOTE | 2020-10-23 13:57 | NUR ---
BLOOD TRANSFUSION IS NOW COMPLETE WILL DRAW CBC AT 15:00 PM. DENIES ANY ISSUES, TALKING WITH GIRLFRIEND IN THE ROOM.
[2020-10-23 15:10] VITALS: BP 152/92
[2020-10-23 15:58] LABS: HEMATOCRIT 25.2 % (42.0-52.0); HEMOGLOBIN 8.3 gm/dL (14.0-18.0); MCH 24.3 pg (26.0-34.0); MCHC 32.7 g/dL (28.0-37.0); MCV 74.2 fL (80.0-100.0); RBC 3.4 mil/uL (4.50-6.00); RDW 16.2 % (10.5-14.5); WBC 5.9 thou/uL (4.0-11.0)
[2020-10-23 20:25] VITALS: BP 195/108
[2020-10-23 23:38] VITALS: BP 149/90
[2020-10-24 03:56] VITALS: BP 174/104
[2020-10-24 04:47] LABS: HEMATOCRIT 24.5 % (42.0-52.0); MCH 24.3 pg (26.0-34.0); MCHC 32.7 g/dL (28.0-37.0); MCV 74.5 fL (80.0-100.0); RBC 3.29 mil/uL (4.50-6.00)
[2020-10-24 05:00] LABS: CALCIUM 8.3 mg/dL (8.5-10.1); CREATININE 2.1 mg/dL (0.7-1.3); POTASSIUM 3.8 mmol/L (3.5-5.1)
[2020-10-24 05:03] VITALS: BP 172/95
[2020-10-24 06:51] LABS: PROT/CREAT RATIO 1.9; URINE CREATININE-RANDOM* 66.2 mg/dL; URINE PROTEIN-RANDOM* 124.2 mg/dL (<11.9)
[2020-10-24 07:05] VITALS: BP 156/89
--- NOTE | 2020-10-24 07:51 | NUR ---
NPO FOR EGD TODAY.BP ELEVATED,HYDRALAZINE GIVEN.COVID RESULT IS NEGATIVE.MONITOR SHOWS SR.POC CONTINUED.
[2020-10-24 11:15] VITALS: BP 165/91
[2020-10-24 15:15] VITALS: BP 173/98
--- NOTE | 2020-10-24 17:02 | NUR ---
Case discussed with the care team. EGD today. Possible colonoscopy pending occult stool. Pt is legally blind and on disability. He is up ad cielo in the room and steady on his feet. He has supportive girl friend and had nursing change his emergency contact to his dtr instead of his parents. The pt has health ins for f/u care at in. No cm interventions indicated at this time. Will remain available should needs arise.
--- NOTE | 2020-10-24 19:56 | NUR ---
ASSUMED CARE SHIFT CHANGE. ASSESSMENTS CHARTED.MEDS GIVEN. VSS. EGD THIS SHIFT NO FINDINGS. OCCULT STOOL PENDING. PT UP SBA TOLERATING WELL. O2 SATS WNL RA. C/O PAIN MANAGED WITH PO TYLENOL. PLAN FOR DC HOME ONCE MEDICALLY STABLE. CONTINUING POC. REPORT PASSED TO АННА RN.
[2020-10-24 20:32] VITALS: BP 142/77
[2020-10-25 04:02] LABS: CALCIUM 8.2 mg/dL (8.5-10.1)
[2020-10-25 04:13] LABS: HEMATOCRIT 25.3 % (42.0-52.0); HEMOGLOBIN 8.4 gm/dL (14.0-18.0); MCH 24.8 pg (26.0-34.0); MCHC 33.2 g/dL (28.0-37.0); MCV 74.5 fL (80.0-100.0); RBC 3.39 mil/uL (4.50-6.00); RDW 16.2 % (10.5-14.5); WBC 6.5 thou/uL (4.0-11.0)
[2020-10-25 05:02] VITALS: BP 155/78
--- NOTE | 2020-10-25 06:42 | NUR ---
SLEPT PART OF SHIFT. UP TO BATHROOM WITH STANDBY ASSIST. NO BM THIS SHIFT. MYRLAX GIVEN LAST NOC. NO PRESENT COMPLAINTS OF PAIN. CONTINUE TO ASSES CLOSELY.
[2020-10-25 07:20] VITALS: BP 141/92
[2020-10-25 11:10] VITALS: BP 146/87
[2020-10-25 15:45] VITALS: BP 145/84
[2020-10-25 20:08] VITALS: BP 140/82
--- NOTE | 2020-10-25 20:32 | NUR ---
RECEIVED PT'S CARE AROUND 0715; PT. ON SITTING AT THE BED SIDE; ALERT; DURING AM ASSESSMENT AOX4; C/O PAIN OVER BACK; LIDOCAINE PATCH SCHEDULED; EDUCATED ABOUT PAIN MANAGEMENT; ST. UNDERSTANDING; AM MEDICATIONS GIVEN; EDUCATED ABOUT FALL PRECAUTIONS; ST. UNDERSTANDING; SR ON THE MONITOR; REQUESTED SOME MEDICATION FOR ANTI-ANXIETY; PHYSICIAN NOTIFIED; THROUGH THE DAY REQUESTED SODAS; EDUCATED ABOUT FLUID RESTRICTION; ST. UNDERSTANDING; PRN MEDICATION FOR PROMOTE BOWEL MOVEMENT GIVEN; NO BM THROUGH THE DAY; ASSESSMENT CHARGED; FOLLOWING POC; PASSED ON REPORT;
[2020-10-26 04:31] VITALS: BP 130/69
[2020-10-26 04:38] LABS: HEMATOCRIT 24.6 % (42.0-52.0); MCH 24.4 pg (26.0-34.0); MCHC 32.7 g/dL (28.0-37.0); MCV 74.7 fL (80.0-100.0); RBC 3.3 mil/uL (4.50-6.00); RDW 16.2 % (10.5-14.5); WBC 6.5 thou/uL (4.0-11.0)
[2020-10-26 04:46] LABS: CALCIUM 8.2 mg/dL (8.5-10.1); CREATININE 2.4 mg/dL (0.7-1.3); POTASSIUM 4.5 mmol/L (3.5-5.1)
[2020-10-26 07:25] VITALS: BP 145/72
[2020-10-26 11:35] VITALS: BP 153/85
[2020-10-26 15:53] VITALS: BP 138/35
--- NOTE | 2020-10-26 18:21 | NUR ---
ASSUMED CARE SHIFT CHANGE. ASSESSMENTS CHARTED.MEDS GIVEN. VSS. C/O PAIN MANAGED WITH PO PAIN MEDS. PT UP WALKING TOLERATING WELL. PT REMAINS CONSTIPATED PHYSICIAN NOTIFIED ORDERS RECEIVED. PLAN FOR BOWEL PREP TOMORROW. PT CURRENTLY IN ROOM DENYING NEEDS OR CONCERNS. CONTINUING TO FOLLOW POC. WILL PASS ON REPORT TO АННА CURIEL.
[2020-10-26 19:47] VITALS: BP 106/64
[2020-10-27 04:39] LABS: CALCIUM 8.6 mg/dL (8.5-10.1); CREATININE 2.7 mg/dL (0.7-1.3); POTASSIUM 4.7 mmol/L (3.5-5.1)
[2020-10-27 04:50] LABS: HEMATOCRIT 25.7 % (42.0-52.0); HEMOGLOBIN 8.2 gm/dL (14.0-18.0); MCH 24.1 pg (26.0-34.0); MCHC 32.1 g/dL (28.0-37.0); MCV 75.2 fL (80.0-100.0); RBC 3.41 mil/uL (4.50-6.00); RDW 16.7 % (10.5-14.5); WBC 6.9 thou/uL (4.0-11.0)
[2020-10-27 05:20] VITALS: BP 124/70
[2020-10-27 08:20] VITALS: BP 146/82
[2020-10-27 11:05] VITALS: BP 139/75
[2020-10-27] MEDS ORDERED: BYSTOLIC10 MG PO (12:19)
[2020-10-27] MEDS ORDERED: NORVASC5 MG PO (12:20)
[2020-10-27] MEDS ORDERED: VITAMIN D325 MC1 PO (12:20)
[2020-10-27] MEDS ORDERED: TORSEMIDE20 MG PO (12:20)
[2020-10-27] MEDS ORDERED: NEURONTIN 300M300 M2 PO (12:20)
[2020-10-27] MEDS ORDERED: FOLIC ACID1 MG PO (12:21)
[2020-10-27 15:35] VITALS: BP 146/80
--- NOTE | 2020-10-27 15:45 | NUR ---
ASSESSMENT CHARTED. PT ALERT AND ORIENTED. LEGALLY BLIND. SCHEDULED FOR COLONOSCOPY IN AM. NPO AFTER MIDNIGHT. PROGRESSING WELL TOWARDS DISCHARGE GOAL.
[2020-10-27 19:16] VITALS: BP 175/72
[2020-10-27 19:34] VITALS: BP 155/93
[2020-10-28] VITALS (8 sets, daily range): BP systolic 137–175; BP diastolic 58–97
--- NOTE | 2020-10-28 00:42 | NUR ---
A/O X 4.LEGALLY BLIND.NPO SINCE MIDNIGHT FOR A COLONOSCOPY TODAY.AROUND 0030 AM,PATIENT DECIDED TO TAKE A SHOWER,EXPLAINED TO HIM THAT WE NEED TO GET AN ORDER FROM THE DOCTOR IF OKAY TO TAKE OFF DATA REPORTING ANALYST,PT STATES "I DON'T NEED THIS BULLSHIT,I WILL TAKE A SHOWER ANYWAY".WAS ABLE TO GET AN ORDER FROM PROPERTY UTILIZATION OFFICER.PT TOOK A SHOWER.MONITOR SHOWS SR.NO ECTOPIES,NO TACHYS.POC CONTINUED.
[2020-10-28 08:41] LABS: ALBUMIN 2.5 g/dL (3.4-5.0); CALCIUM 8.2 mg/dL (8.5-10.1); CREATININE 2.3 mg/dL (0.7-1.3); PHOSPHORUS 3.7 mg/dL (2.5-4.9); POTASSIUM 4.9 mmol/L (3.5-5.1)
[2020-10-28] MEDS ORDERED: TORSEMIDE20 MG PO (12:50)
--- NOTE | 2020-10-28 16:21 | NUR ---
PT CARE ASSUMED AT 0700. ASSESSMENTS CHARTED. MEDICATIONS CHARTED. RAC IV. SINUS RHYTHM. COLONOSCOPY CANCELLED; PT DID NOT RUN CLEAR; PREP IS TO REPEAT TONIGHT. NPO AFTER 0000. ACHS. UP AD RHONDA. PT'S LT BIG TOE NAIL BLED, BANDAGED. PT STATES THAT IT REGULARLY FALLS OFF ON OCCASION.
[2020-10-29] VITALS (8 sets, daily range): BP systolic 163–189; BP diastolic 97–102
[2020-10-29 04:25] LABS: HEMATOCRIT 23.8 % (42.0-52.0); HEMOGLOBIN 7.8 gm/dL (14.0-18.0); MCH 24.7 pg (26.0-34.0); MCHC 32.8 g/dL (28.0-37.0); MCV 75.2 fL (80.0-100.0); RBC 3.16 mil/uL (4.50-6.00); RDW 16.4 % (10.5-14.5); WBC 5.8 thou/uL (4.0-11.0)
[2020-10-29 04:41] LABS: CALCIUM 8.5 mg/dL (8.5-10.1); CREATININE 2.3 mg/dL (0.7-1.3); POTASSIUM 4.6 mmol/L (3.5-5.1)
--- NOTE | 2020-10-29 07:25 | NUR ---
PATIENTS CARES WERE ASSUMED AT SHIFT CHANGE. PATIENT WAS ASSESSED AND MEDS WERE PASSED. PATIENT WAS SUCCESSFUL WITH DRINKING THE PREP LAST NIGHT. ALL WAS COMPLETED BEFORE MIDNIGHT. LAST STOOL CHECK IT WAS A YELLOW FLUID AND A FEW FLECKS. ROUNDING WAS DONE. THE BED WAS IN A LOW AND LOCKED POSITION
[2020-10-29] MEDS ORDERED: PROTONIX40 M2 PO (12:04)
[2020-10-29] MEDS ORDERED: BYSTOLIC20 MG PO (12:04)
--- NOTE | 2020-10-29 13:35 | NUR ---
Assess due to extreme class III obesity, BMI of 40.7. Admit with htn, ANDRES, and volume overload/anasarca. Also being evaluated for anemia and pending colonoscopy. Familiar with pt from previous admit, instructed on low Na diet. 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 Wt hx showing over 100 lb gain from last year if accurate. On torsemide. Encouraged making appropriate diet choices limiting both Na and control carb intake for BG management. Education materials provided for caregiver as requested. Physician has indicated protein calorie malnutritio: RD will defer. Low nutrition risk
--- NOTE | 2020-10-29 17:35 | NUR ---
Patient returned from colonoscopy. Discussed home health care. He has no preference for home health care. PCP Dr Dr Eyad Antony or Dr Sole Mobley. form [facility]. Patient prefers a phys at [facility]. Gave patient information on PCP located at [facility]. Due to now afterhours for home health agencies plan to arrange home health care in am and notify patient.
--- NOTE | 2020-10-30 09:39 | P ---
[facility] [place] [address] PROCEDURE REPORT Name: CHAPIN ECHOLS Room #: 210-P [facility] IN ..#: [id number] Admission: 10/22/20 Attend Phys: Ignacio Bustos MD Discharge: 10/29/20 Date of : 73 Report #: [id number] THIS REPORT FOR: cc: FAM - No family physician/PCP FAM - No family physician/PCP Asif Lovelace MD ~ DATE OF SERVICE: 10/24/2020 PROCEDURE PERFORMED: Upper endoscopy. HISTORY OF PRESENT ILLNESS: The patient is a 44-year-old male with multiple medical problems including diabetes, congestive heart failure, hypertension, was admitted for increasing lower extremity edema and anasarca. He is now undergoing diuresis, was noted to have an admission hemoglobin of 7.3, this dropped to 6.9 and he was transfused. Most recent hemoglobin to compare was in 12/2019 when he was at 9.5. The patient is unsure if he has any blood in his stools, as he is legally blind. Family members report no obvious signs of bleeding. No previous history of EGD or colonoscopy. Hemoglobin today is 8.0. Stool Hemoccult testing is pending at this time. DESCRIPTION OF PROCEDURE: The risks and benefits of the procedure were explained to the patient, those risks including but not limited to bleeding, perforation, and the risk of sedation. He understood these risks and gave informed consent. Sedation was given using propofol per anesthesia. Next, using a standard Olympus upper endoscope, the scope was placed in the patient's mouth and advanced under direct vision through the esophagus, stomach, and into the second portion of the duodenum. The esophagus was normal throughout. The GE junction was normal. Overall, the gastric mucosa was normal. No evidence of ulcerations or erosions. The pylorus was normal and patent. The duodenal bulb, first and second portion were all normal. No evidence of bleeding throughout the exam today. The scope was then withdrawn and the procedure terminated. The patient tolerated the procedure well. IMPRESSION: Normal upper endoscopy. RECOMMENDATIONS: 1. Continue PPI therapy. 2. We will await Hemoccult testing of stool. If positive, we would recommend proceeding with a colonoscopy in the near future. In the meantime, continue to monitor hemoglobin. [address] [address] PROCEDURE REPORT Name: KINZAISAIAHWYATT Liliane Room #: 210-P [facility].#: [id number] Admission: 10/22/20 Attend Phys: Ignacio Bustos MD Discharge: 10/29/20 Date of : 73 Report #: [id number] Thank you for allowing me to participate in his care. <ELECTRONICALLY SIGNED> By: Asif Lovelace MD 10/30/20 0939 1254 1327 Asif Lovelace MD /nt
--- NOTE | 2020-10-30 09:45 | NUR ---
PT DISCHARGED YESTERDAY 10/29 TO HOME WITH HH FAXED REFERRAL TO [facility] HH SPOKE WITH EWELINA IN INTAKE SHE CAN ACCEPT. FAXED DC ORDERS/SUMMARY RECEIVED CONFIRMATION THEY WILL ARRANGE VISITS WITH PT.
[2020-10-31 20:33] LABS: ALDOSTERONE < 1.0 ng/dL (0.0-30.0)
== END 2020-10-29 18:39 | disposition home health service (06) | DRG 291 ==
LOC: ER 14:16 → EROBS 17:13 → 2N 17:13
PROVIDERS: Emergency Medicine; Hospitalist; Internal Medicine Nephrology; Nurse Practitioner; Nurse Practitioner Adult Health; ADMIT Hospitalist; ATTEND Hospitalist
DX: I13.0 Hypertensive heart and chronic kidney disease with heart failure and stage 1 through stage 4 chronic kidney disease, or unspecified chronic kidney disease (principal); I50.33 Acute on chronic diastolic (congestive) heart failure; E43 Unspecified severe protein-calorie malnutrition; N17.9 Acute kidney failure, unspecified; Z68.41 Body mass index [BMI] 40.0-44.9, adult; I16.1 Hypertensive emergency; I42.9 Cardiomyopathy, unspecified; N50.89 Other specified disorders of the male genital organs; I16.0 Hypertensive urgency; E78.5 Hyperlipidemia, unspecified; E87.70 Fluid overload, unspecified; M54.30 Sciatica, unspecified side; E78.00 Pure hypercholesterolemia, unspecified; E11.40 Type 2 diabetes mellitus with diabetic neuropathy, unspecified; E11.22 Type 2 diabetes mellitus with diabetic chronic kidney disease; D50.0 Iron deficiency anemia secondary to blood loss (chronic); E66.01 Morbid (severe) obesity due to excess calories; D50.9 Iron deficiency anemia, unspecified; N18.2 Chronic kidney disease, stage 2 (mild); G47.33 Obstructive sleep apnea (adult) (pediatric); K21.9 Gastro-esophageal reflux disease without esophagitis; K63.5 Polyp of colon; K59.00 Constipation, unspecified; I27.20 Pulmonary hypertension, unspecified; Z20.822 Contact with and (suspected) exposure to COVID-19; Z90.49 Acquired absence of other specified parts of digestive tract; Z87.891 Personal history of nicotine dependence; Z79.4 Long term (current) use of insulin; Z79.82 Long term (current) use of aspirin; Z79.899 Other long term (current) drug therapy; Z23 Encounter for immunization
CPT/HCPCS: 10081; 62110; 62900; 70005

== ENCOUNTER → 2021-03-05 | Outpatient (CLI) | payer OTHER ==
[~2021-03-05] MED LIST changes: +BYSTOLIC10 MG PO; +BYSTOLIC20 MG PO; +FOLIC ACID1 MG PO; +LASIX 40 MG TAB40 MG PO; +MELATONIN3 M1 PO; +NEURONTIN 300M300 M2 PO; +NORVASC5 MG PO; +PROTONIX40 M2 PO; +TOPROL XL50 MG PO; +TORSEMIDE20 MG PO; +VITAMIN D325 MC1 PO
== END ==
LOC: SJCVC 12:57
PROVIDERS: ATTEND Internal Medicine
DX: I10 Essential (primary) hypertension (principal); R60.0 Localized edema; E10.9 Type 1 diabetes mellitus without complications; D64.9 Anemia, unspecified; N28.9 Disorder of kidney and ureter, unspecified; Z90.49 Acquired absence of other specified parts of digestive tract; Z79.899 Other long term (current) drug therapy; Z87.891 Personal history of nicotine dependence

== ENCOUNTER → 2021-04-16 | Outpatient (CLI) | payer OTHER | LOC: SJCVC 12:29 | PROVIDERS: ATTEND Internal Medicine | DX: I10 Essential (primary) hypertension (principal); E11.9 Type 2 diabetes mellitus without complications; Z87.891 Personal history of nicotine dependence; Z72.89 Other problems related to lifestyle; Z79.899 Other long term (current) drug therapy ==

== ENCOUNTER → 2021-07-17 | Outpatient (CLI) | payer OTHER ==
[~2021-07-17] MED LIST changes: +ATORVASTATIN CA20 MG PO; +DEMADEX20 MG PO; +LANTUS SOL100 UNIT/1 SUBQ; +NEURONTIN300 MG PO; +NORVASC10 MG PO; +SPIRONOLACTONE25 MG PO; +TYLENOL325 M1 PO
== END ==
LOC: SJCVC 13:40
PROVIDERS: ATTEND Internal Medicine
DX: I10 Essential (primary) hypertension (principal); E11.9 Type 2 diabetes mellitus without complications; E66.9 Obesity, unspecified; D64.9 Anemia, unspecified; Z79.4 Long term (current) use of insulin; Z72.89 Other problems related to lifestyle; Z87.891 Personal history of nicotine dependence; Z79.899 Other long term (current) drug therapy

== ENCOUNTER → 2021-07-17 | Outpatient (CLI) | payer OTHER | LOC: LAB 09:55 | PROVIDERS: ATTEND Student in an Organized Health Care Education/Training Program | DX: Z01.812 Encounter for preprocedural laboratory examination (principal); Z20.822 Contact with and (suspected) exposure to COVID-19 ==

== ENCOUNTER → 2021-07-21 | Outpatient (CLI) | payer OTHER ==
[~2021-07-21] VITALS: Ht 190.5 cm; Wt 114.3 kg
--- NOTE | 2021-07-29 10:08 | PATH ---
[facility] [address] [address] PATHOLOGY RPT PROCEDURE Name: PONCHOCHAPIN Momin Room #: REG [facility] [place].#: [id number] Admission: 07/21/21 Date of : 73 Discharge: Report #: [id number] Path Case #: [id number] [facility] Accession Number: [id number] . 01 Material submitted: . PART A: colon - TRANSVERSE COLON POLYP. Modifiers: transverse PART B: sigmoid colon - SIGMOID COLON POLYP . 01 Clinical history: . COLONOSCOPY DOCUMENT COMPLETE REMOVAL OF NEW ENDOCRINE TUMOR . 02 Diagnosis: A. Colonic mucosa (transverse colon polyp): - Tubular adenoma. . B. Colonic mucosa (sigmoid colon polyp): - Tubular adenoma. Q 07/23/2021 1315 Local . 02 Comment: We find no evidence of high grade dysplasia or of malignancy. ([facility]/; 07/23/2021) . 02 Electronically signed: . Jose Holliday MD, Pathologist NPI- [id number] . 01 Gross description: . A. The specimen is received in formalin, labeled "Chapin Isaac, transverse colon polyp". Received is a single segment of pale reynoso tissue measuring 0.4 cm in maximum dimensions. The specimen is entirely submitted in cassette A1. . B. The specimen is received in formalin, labeled "Poncho, Chapin, sigmoid colon polyp". Received are 3 segments of pale reynoso tissue measuring 0.2 and 0.4 cm in maximum dimensions. The specimen is entirely submitted in cassette B1. ([facility]; 07/22/2021) NRI/NRI 07/22/2021 1638 Local . 02 Pathologist provided ICD-10: D12.3, D12.5 . 02 CPT . 313969, 692016 Specimen Comment: A courtesy copy of this report has been sent to [phone] [place] [address] PATHOLOGY RPT PROCEDURE Name: CHAPIN ISAAC Room #: REG [facility]#: [id number] Admission: 07/21/21 Date of : 73 Discharge: Report #: [id number] Path Case #: [id number] Specimen Comment: Report sent to Specimen Comment: A duplicate report has been generated due to demographic updates. Performed at: 01 [facility] [place] [address] [id number] MD Augustus Winslow MD Phone: [phone] Performed at: [address] [id number] MD Jose Holliday MD Phone: [phone]
== END | disposition home or self-care (01) ==
LOC: GI 07:20
PROVIDERS: ATTEND Internal Medicine Gastroenterology
DX: Z12.11 Encounter for screening for malignant neoplasm of colon (principal); D12.3 Benign neoplasm of transverse colon; D12.5 Benign neoplasm of sigmoid colon; I10 Essential (primary) hypertension; E11.40 Type 2 diabetes mellitus with diabetic neuropathy, unspecified; E78.5 Hyperlipidemia, unspecified; Z98.890 Other specified postprocedural states; Z90.49 Acquired absence of other specified parts of digestive tract; Z79.899 Other long term (current) drug therapy; Z87.891 Personal history of nicotine dependence; Z79.4 Long term (current) use of insulin
CPT/HCPCS: 62110; 62900